=== PATIENT | male | born 1930 | race Caucasian/White ===

== ENCOUNTER 2016-11-13 16:31 | Inpatient (IN) | payer MEDICARE, SELFPAY ==
[2016-11-13] MEDS ORDERED: SODIUM CHLORIDE 0.9% 10 ML FLUSH FLUSH PRN (16:40)
[2016-11-13] MEDS ORDERED: Albuterol/Ipratropium Neb 3 ML NEB NEB ONE (16:41)
[2016-11-13] MEDS ORDERED: METHYLPREDNISOLONE 125 MG/2 ML VIAL IV ONE (16:41)
[2016-11-13 16:55] LABS: AUTOMATED BASOPHIL 1.6 % (0-2); AUTOMATED EOSINOPHIL 2.4 % (0-5); AUTOMATED LYMPH 16.8 % (17-44); AUTOMATED NEUTROPHIL 73.2 % (45-76); MPV 6.8 fL (7.4-10.4)
[2016-11-13 16:56] LABS: ABG Draw Site Right Radial; ABG Draw Tech FS; ALLEN'S TEST PASS; BEb 17.2 (+/- 2); TCO2 44.8 MMOL/L (23-27)
--- NOTE | 2016-11-13 16:56 | EDPRACDOC ---
- General Information Mode Of Arrival: Car - History of Present Illness Onset: TODAY HPI: PT PRESENTS TODAY WITH INCREASINGLY SHOB SINCE LAST NIGHT. PT DENIES FEVER, COUGH/CONGESTION. SHOB WORSE WITH EXERTION. PT CURRENTLY TACHYPNEIC WITH PURSED LIPS AND SPO2 @ 78% ON PTS USUAL 3 LITERS. PT DENIES ANY KIND OF PAIN. Shortness of Breath: Severe Relevant History: Reports: COPD, Heart Failure (CHF) Ear Symptoms: Reports: None SOB Worsens with: Reports: Exertion SOB Improves with: Reports: Rest <Cee Banks - Last Filed: 11/13/16 17:48> <Lloyd Peraza - Last Filed: 11/13/16 19:45> - General Information Chief Complaint: Dyspnea/Resp distress Stated Complaint: shortness of breath Time Seen by Provider: 11/13/16 16:36 Home Medications: Home Medications Doxazosin Mesylate [Cardura] 4 mg PO HS 11/28/12 Atorvastatin Calcium [Lipitor] 20 mg PO QAM 09/17/14 Metoprolol Succinate [Toprol Xl] 25 mg PO HS 09/17/14 Isosorbide Mononitrate [Isosorbide Mononitrate ER] 60 mg PO HS 06/25/15 Aspirin (Enteric Coated) [Halfprin] 81 mg PO QAM 07/30/16 Pantoprazole Sodium [Protonix] 40 mg PO QAM 07/30/16 Ascorbic Acid [Vitamin C] 250 mg PO QAM 09/13/16 Furosemide 40 mg PO QAM 09/13/16 Allergies/Adverse Reactions: Allergies Allergy/AdvReac Type Severity Reaction Status Date / Time Tony inhibitor AdvReac Severe See Uncoded 11/13/16 16:42 Comments ED Past Medical History - History Reviewed Yes Nurses notes reviewed and agree except as marked - Patient Medical History Neurological History: Denies: Cerebrovascular Accident, Seizures Cardiac History: Reports: Coronary Artery Disease, Atrial Fibrillation, Hypertension, Congestive Heart Failure, Heart Attack, Cardiac Catheterization, Hypercholesterolemia, Pacemaker, Valvular Heart Disease Respiratory History: Reports: COPD, Pneumonia, Emphysema. Denies: Asthma, Chronic Bronchitis GI/ History: Reports: Renal Disease, Renal Failure, Urinary Tract Infection, Gastroesophageal Reflux Musculoskeletal History: Reports: Arthritis (Shoulders.), Osteoarthritis. Denies: Rheumatoid Arthritis Psychological History: Reports: Depression. Denies: Anxiety, Bipolar Disorder, Substance Use Disorder Systemic History: Reports: Anemia. Denies: Cancer, Diabetes, Hyperthyroidism, Hypothyroidism Surgical History: Reports: Angioplasty, Cardiac Catheterization, Hernia Surgery. Denies: Other (PTCA and stenting, Pacemaker implantation, hernia surgery, AAA stenting) - Family Medical History Reports: Cardiac Disorders (SON). Denies: Hypertension, Diabetes, Cancer, Stroke - Social Medical History Smoking Status: Former smoker Social History: Denies: Substance Use Disorder <Cee Banks - Last Filed: 11/13/16 17:48> EDM Review of Systems - Review of Systems ROS Negative Except as Marked: Yes All systems reviewed and were negative except as marked Constitutional: No Symptoms Reported Ears: No Symptoms Reported Throat: No Symptoms Reported Nose: No Symptoms Reported Respiratory: Shortness of Breath Cardiovascular: No Symptoms Reported Gastrointestinal: No Symptoms Reported Neurological: No Symptoms Reported Musculoskeletal: No Symptoms Reported Integumentary: No Symptoms Reported <Cee Banks - Last Filed: 11/13/16 17:48> - Physical Exam Constitutional: Alert, Distress Oriented to: Time, Person, Place Last recorded Vital Signs: Last Vital Signs Temp Pulse 85 11/13/16 16:41 Resp 26 H 11/13/16 16:41 BP 147/63 11/13/16 16:41 Pulse Ox 70 L 11/13/16 16:41 Oxygen Pulse Oxygen Saturation 70 O2 Device Nasal Cannula Oxygen Flow Rate 3 Fraction of Inspired Oxygen ( FIO2) - HEENT Head: Normal Eye Exam: Normal Neck: Normal, Denies Pain, Midline - Respiratory/Cardiovascular Respiratory: Accessory Muscle Use, Rhonchi (MILD, BILATERAL LOWER LOBES), Tachypnea Cardiovascular: Normal - GI Auscultation: Normal Palpation: Normal Tenderness: Non tender - Musculoskeletal Back: Normal Extremities: Pedal Edema (1+ PITTING; CHRONIC; NO WORSE THAN USUAL PER PT) - Integumentary Skin: Warm, Clam[place] Lymphatics: Normal - Neurologic Cerebellar: Unable to Test Mood Description: Appropriate Thought: Coherent Perception: Normal <Cee Bnaks - Last Filed: 11/13/16 17:48> - Physical Exam Last recorded Vital Signs: Last Vital Signs Temp Pulse 75 11/13/16 18:01 Resp 20 11/13/16 18:01 BP 121/58 L 11/13/16 18:01 Pulse Ox 88 L 11/13/16 18:01 Oxygen Pulse Oxygen Saturation 88 O2 Device Nasal Cannula Oxygen Flow Rate 2 Fraction of Inspired Oxygen ( 29 FIO2) <Lloyd Peraza - Last Filed: 11/13/16 19:45> ED SOB MDM - Results Result Diagrams: 11/13/16 16:45 11/13/16 16:45 - EKG EKG #1 EKG Time: 16:52 -: Yes EKG interpreted by me Rate: bpm: 75 [place]: LAD Rhythm: NSR Block: LBBB Hypertrophy: None ST: Normal - Additional Information Additional Information: CARE ENDORSED TO DR. PERAZA AT 1800 <Cee Banks - Last Filed: 11/13/16 17:48> - Re-evaluation Re-evaluation 1 Re-evaluation Time: 17:30 (Pt with chronically worsening breathing, now hypoxic into low 80's despite NC O2. Pt unable to stand and walk even a few feet due to CHF. Pt is normotensive, + leg edema, orthopnea, EDMONDS, exp wheeze and rales at bases, diminshed breath sounds diffuse on auscultation. PCXR reviewed, radiology read reviewed. Will give lasix. No new ischemia on ECG. Will need admission. ABG results noted. ) - Results Result Diagrams: 11/13/16 16:45 11/13/16 16:45 Results: WBC 6.7 xk/uL (3.8-10.8) 11/13/16 16:45 RBC 3.92 xM/uL (4.70-6.10) L 11/13/16 16:45 Hgb 9.8 g/dL (14.0-18.0) L 11/13/16 16:45 Hct 30.9 % (42-52) L 11/13/16 16:45 MCV 79 fL (80-94) L 11/13/16 16:45 MCH 24.9 pg (27-32) L 11/13/16 16:45 MCHC 31.5 g/dl (33-36) L 11/13/16 16:45 RDW 21.4 % (11.5-14.5) H 11/13/16 16:45 Plt Count 212 xk/uL (130-400) 11/13/16 16:45 MPV 6.8 fL (7.4-10.4) L 11/13/16 16:45 Neut % (Auto) 73.2 % (45-76) 11/13/16 16:45 Lymph % (Auto) 16.8 % (17-44) L 11/13/16 16:45 Glenn % (Auto) 6.0 % (3-10) 11/13/16 16:45 Eos % (Auto) 2.4 % (0-5) 11/13/16 16:45 Baso % (Auto) 1.6 % (0-2) 11/13/16 16:45 Absolute Neuts (auto) 4.89 xk/uL (1.7-8.2) 11/13/16 16:45 Absolute Lymphs (auto) 1.07 xk/uL (0.65-4.75) 11/13/16 16:45 PT 11.2 SEC (9.2-11.2) 11/13/16 16:45 INR 1.1 11/13/16 16:45 APTT 27.5 SEC (22-35) 11/13/16 16:45 Puncture Site Right radial 11/13/16 16:50 pH 7.510 pH UNITS (7.35-7.45) H 11/13/16 16:50 pCO2 54.0 mmHg (35-45) H 11/13/16 16:50 pO2 57.0 mmHg (80-100) L 11/13/16 16:50 HCO3 43.1 MMOL/L (22-26) H 11/13/16 16:50 Total CO2 44.8 MMOL/L (23-27) H 11/13/16 16:50 Base Excess 17.2 (+/- 2) H 11/13/16 16:50 FiO2 % 3 l/m nc 11/13/16 16:50 Specimen Drawn By Fs 11/13/16 16:50 Sodium 140 mEq/L (137-146) 11/13/16 16:45 Potassium 2.9 mEq/L (3.5-5.1) L 11/13/16 16:45 Chloride 94 mEq/L (98-107) L 11/13/16 16:45 Carbon Dioxide > 40 mMOL/L (22-33) H 11/13/16 16:45 Anion Gap 9 mEq/L (8-16) 11/13/16 16:45 BUN 16 MG/DL (9-20) 11/13/16 16:45 Creatinine 1.10 MG/DL (0.66-1.25) 11/13/16 16:45 Estimated GFR (MDRD) > 60 mL/min (>=60) 11/13/16 16:45 Glucose 110 MG/DL (70-99) H 11/13/16 16:45 Calculated Osmolality 271 MOs/Kg (270-290) 11/13/16 16:45 Lactic Acid 2.7 mEq/L (0.7-2.1) H 11/13/16 16:45 Calcium 7.4 MG/DL (8.4-10.2) L 11/13/16 16:45 Corrected Calcium 8.7 MG/DL (8.4-10.2) 11/13/16 16:45 Total Bilirubin 0.8 MG/DL (0.2-1.3) 11/13/16 16:45 AST 25 IU/L (17-59) 11/13/16 16:45 ALT 25 IU/L (21-72) 11/13/16 16:45 Alkaline Phosphatase 92 IU/L (50-160) 11/13/16 16:45 Troponin I 0.03 ng/mL (<.04) 11/13/16 16:45 Kej-K-Wwnzswstxbo Pept 4280 pg/mL (0-1800) H 11/13/16 16:45 Total Protein 6.3 G/DL (6.3-8.2) 11/13/16 16:45 Albumin 2.7 G/DL (3.5-5.0) L 11/13/16 16:45 Lab Results 11/13/16 11/13/16 11/13/16 16:50 16:45 16:45 WBC RBC Hgb Hct MCV MCH MCHC RDW Plt Count MPV Neut % (Auto) Lymph % (Auto) Glenn % (Auto) Eos % (Auto) Baso % (Auto) Absolute Neuts (auto) Absolute Lymphs (auto) PT INR APTT Puncture Site Right radial pH 7.510 H pCO2 54.0 H pO2 57.0 L HCO3 43.1 H Total CO2 44.8 H Base Excess 17.2 H FiO2 % 3 l/m nc Specimen Drawn By Fs Sodium Potassium Chloride Carbon Dioxide Anion Gap BUN Creatinine Estimated GFR (MDRD) Glucose Calculated Osmolality Lactic Acid 2.7 H Calcium Corrected Calcium Total Bilirubin AST ALT Alkaline Phosphatase Troponin I Tqq-B-Jfzbvipyvdb Pept 4280 H Total Protein Albumin 11/13/16 11/13/16 11/13/16 16:45 16:45 16:45 WBC 6.7 RBC 3.92 L Hgb 9.8 L Hct 30.9 L MCV 79 L MCH 24.9 L MCHC 31.5 L RDW 21.4 H Plt Count 212 MPV 6.8 L Neut % (Auto) 73.2 Lymph % (Auto) 16.8 L Glenn % (Auto) 6.0 Eos % (Auto) 2.4 Baso % (Auto) 1.6 Absolute Neuts (auto) 4.89 Absolute Lymphs (auto) 1.07 PT 11.2 INR 1.1 APTT 27.5 Puncture Site pH pCO2 pO2 HCO3 Total CO2 Base Excess FiO2 % Specimen Drawn By Sodium 140 Potassium 2.9 L Chloride 94 L Carbon Dioxide > 40 H Anion Gap 9 BUN 16 Creatinine 1.10 Estimated GFR (MDRD) > 60 Glucose 110 H Calculated Osmolality 271 Lactic Acid Calcium 7.4 L Corrected Calcium 8.7 Total Bilirubin 0.8 AST 25 ALT 25 Alkaline Phosphatase 92 Troponin I 0.03 Ehd-H-Dlilmrmkhtk Pept Total Protein 6.3 Albumin 2.7 L <Lloyd Peraza - Last Filed: 11/13/16 19:45> - Departure Disposition: Admit IP To This Hospital Decision to Admit Time: 17:37 Decision to admit date: 11/13/16 Decision to admit: from ED <Cee Banks - Last Filed: 11/13/16 17:48> - Departure Yes I personally saw and evaluated the patient. - Physician Consulted Hospitalist Time Called: 19:40 Provider Called: Kevyn Hernandez Time Mortgage Consultant Returned Call: 19:41 <Lloyd Peraza - Last Filed: 11/13/16 19:45> - Departure Condition: Fair Final Diagnosis: Respiratory alkalosis, Hypoxia CHF (congestive heart failure) Qualifiers: Congestive heart failure type: diastolic Congestive heart failure chronicity: acute on chronic Qualified Code(s): I50.33 - Acute on chronic diastolic ( congestive) heart failure Instructions: *Heart Failure (Activity, Diet, Worsening Symptoms, Weight Monitoring)(ED) Referrals: None,No Provider [Primary Care Provider] - One Week
[2016-11-13 17:08] LABS: BLOOD UREA NITROGEN 16 MG/DL (9-20); CALC CORRECTED 8.7 MG/DL (8.4-10.2); CALCIUM 7.4 MG/DL (8.4-10.2); CALCULATED OSMOLALITY 271 MOs/Kg (270-290); CHLORIDE 94 mEq/L (98-107); GLUCOSE 110 MG/DL (70-99); SODIUM LEVEL 140 mEq/L (137-146); TOTAL PROTEIN 6.3 G/DL (6.3-8.2)
[2016-11-13 17:19] LABS: PARTIAL THROMB. TIME 27.5 SEC (22-35); PT-INR 1.1
--- NOTE | 2016-11-13 17:33 | DIRPT ---
CLINICAL DATA: Chest pain with increase shortness of breath over the past day EXAM: PORTABLE CHEST 1 VIEW COMPARISON: 09/14/2016 FINDINGS: Moderate cardiac enlargement. Vascular congestion. Diffuse hazy interstitial opacification bilaterally similar to prior study allowing for differences in technique. Cardiac pacer unchanged. Retrocardiac portion of the left lower lobe not well evaluated on single AP view with evidence of abnormal opacity in this area. IMPRESSION: Findings suggest congestive heart failure with cardiac enlargement vascular congestion and significant diffuse interstitial prominence stable to slightly worse when compared to prior study. There also remains more focal severe left lower lobe opacity. Electronically Signed By: Gurwinder Child M.D. On: 11/13/2016 17:31
[2016-11-13] MEDS ORDERED: FUROSEMIDE 40 MG/4 ML VIAL IV ONE (17:35)
[2016-11-13] MEDS ORDERED: POTASSIUM CHLORIDE 20 MEQ/15 ML ORAL SOLN PO ONE (17:38)
[2016-11-13 18:37] LABS: RBC/URINE 0-2 (0-2); WBC/URINE 0-2 (0-2)
[2016-11-13 18:38] LABS: LEUKOCYTES/URINE NEG (NEGATIVE); NITRITE/URINE NEG (NEGATIVE); URINE OCCULT BLOOD NEG (NEG/TRACE)
[2016-11-13] MEDS ORDERED: POTASSIUM CHLORIDE 20 MEQ TAB PO ONE (19:39)
[2016-11-13] MEDS ORDERED: ACETAMINOPHEN 325 MG/TAB TABLET PO PRN (19:43)
[2016-11-13] MEDS ORDERED: ONDANSETRON HCL 4 MG/2 ML VIAL IV PRN (19:43)
[2016-11-13] MEDS ORDERED: Pharmacy Order Set Alert SCH (20:00)
--- NOTE | 2016-11-13 20:29 | HISTPHYS ---
- Chief Complaint shortness of breath - History of Present Illness This is a pleasant 86-year-old male who lives at home with his , and is brought in by his son lis due to significant shortness of breath. Most of the history is provided by the son, tells me that his diet has been in the usual state of health, but over the last 2-3 days he has been very weak, with very little energy. He is breathing comfortably at rest, but with any sort of exertion he gets more short of breath. The patient himself denies any chest pain, shortness of breath at rest, any orthopnea, or cough. They both do note that he has some swelling in his hands and his bilateral lower extremities. He has been taking all of his medications including his Lasix as prescribed. Denies any recent illness, fevers chills or chest pain. No nausea or vomiting, changes in bowel or bladder habits. - Medical History Cardiac History: Reports: Coronary Artery Disease, Atrial Fibrillation, Hypertension, Congestive Heart Failure, Heart Attack, Cardiac Catheterization, Hypercholesterolemia, Pacemaker, Valvular Heart Disease Respiratory History: Reports: COPD, Pneumonia, Emphysema. Denies: Asthma, Chronic Bronchitis GI/ History: Reports: Renal Disease, Renal Failure, Urinary Tract Infection, Gastroesophageal Reflux Musculoskeletal History: Reports: Arthritis (Shoulders.), Osteoarthritis. Denies: Rheumatoid Arthritis Systemic History: Reports: Anemia. Denies: Cancer, Diabetes, Hyperthyroidism, Hypothyroidism Neurological History: Denies: Cerebrovascular Accident, Seizures Psychological History: Reports: Depression. Denies: Anxiety, Bipolar Disorder, Substance Use Disorder - Surgical History Reports: Angioplasty, Cardiac Catheterization, Hernia Surgery. Denies: Other ( PTCA and stenting, Pacemaker implantation, hernia surgery, AAA stenting) - Medictions/Allergies Allergies Tony inhibitor Adverse Reaction (Severe, Uncoded 11/13/16 16:42) See Comments Renal failure Home Medications Doxazosin Mesylate [Cardura] 4 mg PO HS 11/28/12 Atorvastatin Calcium [Lipitor] 20 mg PO QAM 09/17/14 Metoprolol Succinate [Toprol Xl] 25 mg PO HS 09/17/14 Isosorbide Mononitrate [Isosorbide Mononitrate ER] 60 mg PO HS 06/25/15 Aspirin (Enteric Coated) [Halfprin] 81 mg PO QAM 07/30/16 Pantoprazole Sodium [Protonix] 40 mg PO QAM 07/30/16 Ascorbic Acid [Vitamin C] 250 mg PO QAM 09/13/16 Furosemide 40 mg PO QAM 09/13/16 - Family History Reports: Cardiac Disorders (SON). Denies: Hypertension, Diabetes, Cancer, Stroke - Social History Smoking Status: Former smoker Social History: Denies: Substance Use Disorder - Review of Systems Yes All systems reviewed and were negative except as marked (And as mentioned in the history of present illness above.) - Physical Exam Vital Signs: Initial Vitals Pulse Rate 85 11/13/16 16:41 Respiratory Rate 26 H 11/13/16 16:41 Blood Pressure 147/63 11/13/16 16:41 Pulse Oxygen Saturation 70 L 11/13/16 16:41 Constitutional: Alert (Awake, Fully oriented, well appearing. No apparent distress) Oriented to: Time, Person, Place Exam: Breathing comfortably on nasal cannula oxygen. - HEENT Head: Normal (normocephalic,atraumatic, trachea midline) Eye: Normal (EOMI, Sclera white) Oropharynx: Normal (moist) Nose: No Symptoms Reported (without discharge or bleeding) Respiratory: Diminished, Other (Crackles at bilateral bases.) Cardiovascular: Normal (RRR, no murmurs, rubs or gallops) - GI Palpation: Normal (soft, non distended and nontender) - Musculoskeletal Extremities: Normal (normal tone, no cyanosis or edema), Edema (Two to 3+ pitting edema in the bilateral lower extremities.) - Integumentary Skin: Normal (no rashes or lesions) - Neurologic Cranial Nerve: Normal (CN II-XII intact) Mood Description: Normal (Fully oriented and appropiate affect) - Focused CV Perfusion Exam Vital Signs: Last Vital Signs Temp Pulse 76 11/13/16 19:57 Resp 20 11/13/16 19:57 BP 118/59 L 11/13/16 19:57 Pulse Ox 93 11/13/16 19:57 - Lab Results Laboratory Tests 09/16/16 09/16/16 11/13/16 06:21 06:21 16:45 WBC 6.8 Hgb 8.9 L Hct 27.2 L Plt Count INR pH pCO2 pO2 Potassium 2.9 L BUN 39 H 16 Creatinine 1.30 H 1.10 11/13/16 11/13/16 11/13/16 16:45 16:45 16:50 WBC 6.7 Hgb 9.8 L Hct 30.9 L Plt Count 212 INR 1.1 pH 7.510 H pCO2 54.0 H pO2 57.0 L Potassium BUN Creatinine - Diagnostic Findings Chest x-ray: Findings suggest congestive heart failure with cardiac enlargement vascular congestion and significant diffuse interstitial prominence stable to slightly worse when compared to prior study. There also remains more focal severe left lower lobe opacity. - Assessment (1) CHF (congestive heart failure) I50.9 - HEART FAILURE, UNSPECIFIED Acute Qualifiers: Congestive heart failure type: diastolic Congestive heart failure chronicity: acute on chronic Qualified Code(s): I50.33 - Acute on chronic diastolic (congestive) heart failure Patient's history of diastolic heart failure. He now appears to be in congestive heart failure with peripheral edema, hypoxia with exertion and pulmonary edema on chest x-ray. Will continue the appropriate heart failure medications that he is already on, will also add IV Lasix twice daily for diuresis along with increase in supplemental potassium. (2) Hypoxia R09.02 - HYPOXEMIA Acute Likely due to his CHF exacerbation. Since he does not have orthopnea, and is borderline tachycardic, will check a D-dimer. If elevated will consider CT angiogram of the chest tonight to rule out pulmonary emboli. (3) Diastolic congestive heart failure I50.30 - UNSPECIFIED DIASTOLIC (CONGESTIVE) HEART FAILURE Acute Qualifiers: Congestive heart failure chronicity: acute on chronic Qualified Code(s): I50.33 - Acute on chronic diastolic (congestive) heart failure Patient w/ past hx of amiodarone induced hyperthyroidism. Hx of diastolic dysfunction. (4) Hypokalemia E87.6 - HYPOKALEMIA Acute Potassium levels are depleted at the time of admission. He got 2 doses of p.o. repletion in the emergency department. Will give him twice daily replacement while he is on IV Lasix. (5) PAF (paroxysmal atrial fibrillation) I48.0 - PAROXYSMAL ATRIAL FIBRILLATION Acute (6) CAD (coronary artery disease) I25.10 - ATHSCL HEART DISEASE OF [place] CORONARY ARTERY W/O ANG PCTRS Chronic Qualifiers: Coronary Disease-Associated Artery/Lesion type: [place] artery [place] vs. transplanted heart: [place] heart Associated angina: without angina Qualified Code(s): I25.10 - Atherosclerotic heart disease of [place] coronary artery without angina pectoris Continue current medications and monitor (7) COPD (chronic obstructive pulmonary disease) J44.9 - CHRONIC OBSTRUCTIVE PULMONARY DISEASE, UNSPECIFIED Chronic Qualifiers: COPD type: emphysema Chronic bronchitis type: C Emphysema type: panlobular Qualified Code(s): J43.1 - Panlobular emphysema Continue home oxygen, and supportive care. Currently no evidence of COPD exacerbation at this time. (8) Chronic kidney disease N18.9 - CHRONIC KIDNEY DISEASE, UNSPECIFIED Chronic Qualifiers: Chronic kidney disease stage: unspecified stage Qualified Code(s): N18.9 - Chronic kidney disease, unspecified Current creatinine at baseline for this patient. Plan: Continue to monitor creatinine levels. Avoid nephrotoxins. (9) GERD (gastroesophageal reflux disease) K21.9 - GASTRO-ESOPHAGEAL REFLUX DISEASE WITHOUT ESOPHAGITIS Chronic Qualifiers: Esophagitis presence: without esophagitis Qualified Code(s): K21.9 - Gastro -esophageal reflux disease without esophagitis Continue PPI (10) Hyperlipidemia E78.5 - HYPERLIPIDEMIA, UNSPECIFIED Chronic Qualifiers: Hyperlipidemia type: Mixed hyperlipidemia Continue home statin. - Plan Patient's eldest son who was at the emergency department lis expresses some concern about his father spending the whole day in the chair, not very active and he feels this is why he is developing lower extremity edema and some heart failure. I discussed with him that they may want to explore the services that the [facility] program provides. I have placed a social work consult for this. Case Care Discussed with: Patient, Family Total Time: 48
[2016-11-13] MEDS: FUROSEMIDE 40 MG/4 ML VIAL IV SCH (21:58)
[2016-11-13] MEDS ORDERED: Pharmacy Review for Metformin - IV Contrast Given SCH (22:00)
[2016-11-13] MEDS ORDERED: Vaccine Screening Complete SCH (23:00)
--- NOTE | 2016-11-13 23:15 | DIRPT ---
CLINICAL DATA: Hypoxia. Elevated D-dimer. Weakness. Shortness of breath for 3 days. EXAM: CT ANGIOGRAPHY CHEST WITH CONTRAST TECHNIQUE: Multidetector CT imaging of the chest was performed using the standard protocol during bolus administration of intravenous contrast. Multiplanar CT image reconstructions and MIPs were obtained to evaluate the vascular anatomy. CONTRAST: 90 mL Isovue 370 COMPARISON: 07/01/2016 FINDINGS: Technically limited study due to motion artifact. There is moderately good opacification of the central and segmental pulmonary arteries. No focal filling defects. No evidence of significant pulmonary embolus. Diffuse cardiac enlargement. Cardiac pacemaker. Normal caliber thoracic aorta with calcifications. Coronary artery calcifications. Esophagus is decompressed. No significant lymphadenopathy in the chest. Bilateral pleural effusions with interstitial prominence and patchy airspace disease bilaterally suggesting edema. No pneumothorax. Airways are patent. Calcified pleural plaques. Included portions of the upper abdominal organs demonstrate scattered calcified granulomas in the liver. Degenerative changes in the spine. No destructive bone lesions. Review of the MIP images confirms the above findings. IMPRESSION: No evidence of significant pulmonary embolus. Cardiac enlargement with bilateral pleural effusions and with airspace and interstitial disease in the lungs. This is likely due to congestive failure with pulmonary edema. Calcified pleural plaques. Electronically Signed By: Ellis Turner M.D. On: 11/13/2016 23:12
[2016-11-13] MEDS: METOPROLOL (TOPROL-XL) 25 MG TAB PO SCH (23:32)
[2016-11-13] MEDS: ISOSORBIDE MONONITRATE 60 MG TAB PO SCH (23:32)
[2016-11-13] MEDS: Doxazosin Mesylate 4 MG TAB PO SCH (23:32)
[2016-11-14 05:13] LABS: BLOOD UREA NITROGEN 16 MG/DL (9-20); CALCIUM 7.4 MG/DL (8.4-10.2); CALCULATED OSMOLALITY 276 MOs/Kg (270-290); CHLORIDE 94 mEq/L (98-107); GLUCOSE 256 MG/DL (70-99); SODIUM LEVEL 138 mEq/L (137-146)
[2016-11-14] MEDS: PANTOPRAZOLE 40 MG TAB PO SCH (05:45)
[2016-11-14] MEDS: ATORVASTATIN 20 MG TAB PO SCH (07:50)
[2016-11-14] MEDS: POTASSIUM CHLORIDE 20 MEQ TAB PO SCH ×2 (07:50→17:21)
[2016-11-14] MEDS: FUROSEMIDE 40 MG/4 ML VIAL IV SCH ×2 (07:50→17:21)
--- NOTE | 2016-11-14 15:07 | GENMEDPROG ---
Chief Complaint: Shortness breath is improved and walked twice this morning. States he uses O2 at home set at 3 liters/minute. Notes Reviewed: Yes Events from last night noted and discussed with Clinical Staff Current Medication List: Reviewed Currently: Reports: Cough DVT Prophylaxis: Yes - Physical Examination Vital Signs and I&O: Last Vital Signs Temp 97.6 F 11/14/16 14:00 Pulse 73 11/14/16 09:29 Resp 20 11/14/16 06:00 BP 119/56 L 11/14/16 06:00 Pulse Ox 91 11/14/16 06:00 Oxygen Pulse Oxygen Saturation 91 O2 Device Nasal Cannula Oxygen Flow Rate 3 Fraction of Inspired Oxygen ( FIO2) Intake & Output 11/11/16 11/12/16 11/13/16 11/14/16 23:59 23:59 23:59 23:59 Intake Total 720 Output Total 200 650 Balance -200 70 Patient's weight 98.293 kg 98.293 kg General: Alert, Oriented x3, Mild distress, Well nourished HEENT: Normal (Normocephalic, atraumatic;EOMI.Sclera white, Nares patent, without discharge or bleeding. No oropharyngeal lesions or erythema. Mucous membranes are dry.) Neck: Non-tender, Normal Trachea alignment, Normal inspection (No cervical lymphadenopathy. No supraclavicular lymphadenopathy.), No Masses palpable, Limited range of motion, Supple Lymphatics: Normal (No lymph node swelling or pain.) Respiratory: Diminished, Other (Crackles at bilateral bases.) Cardiovascular: Normal S1, No Gallops,Rubs/Murmurs, Normal S2, Irregular GI: Normal bowel sounds (normal active sounds), Soft (non-distended), Non tender , No hepatospenomegaly, No masses Extremities/Musculoskeletal: Normal pulses (DP pulses 2+ bilaterally) Skin: Warm,Dry and Intact, No rashes, No significant lesion Neurological: Strength at 5/5 X4 ext (Motor 5/5 throughout.), Normal tone, Cranial nerves 3-12 NL ( 2-12 grossly intact.) Psych/Mental Status: Appropriate, Normal Affect Lab/DI/Studies Reviewed: 11/14/16 04:45 11/14/16 04:45 Laboratory Results - last 24 hr 11/13/16 11/13/16 11/13/16 16:45 16:45 16:45 WBC 6.7 RBC 3.92 L Hgb 9.8 L Hct 30.9 L MCV 79 L MCH 24.9 L MCHC 31.5 L RDW 21.4 H Plt Count 212 MPV 6.8 L Neut % (Auto) 73.2 Lymph % (Auto) 16.8 L [place] % (Auto) 6.0 Eos % (Auto) 2.4 Baso % (Auto) 1.6 Absolute Neuts (auto) 4.89 Absolute Lymphs (auto) 1.07 PT 11.2 INR 1.1 APTT 27.5 D-Dimer Quant (PE/DVT) Puncture Site pH pCO2 pO2 HCO3 Total CO2 Base Excess FiO2 % Specimen Drawn By Sodium 140 Potassium 2.9 L Chloride 94 L Carbon Dioxide > 40 H Anion Gap 9 BUN 16 Creatinine 1.10 Estimated GFR (MDRD) > 60 Glucose 110 H Calculated Osmolality 271 Lactic Acid Calcium 7.4 L Corrected Calcium 8.7 Magnesium Total Bilirubin 0.8 AST 25 ALT 25 Alkaline Phosphatase 92 Troponin I 0.03 [id number]-Ynankpwpycn Pept Total Protein 6.3 Albumin 2.7 L Triglycerides Cholesterol LDL Cholesterol, Calc VLDL Cholesterol, Calc HDL Cholesterol Cholesterol/HDL Ratio Urine Color Urine Clarity Urine pH Ur Specific [place] Urine Protein Urine Glucose (UA) Urine Ketones Urine Occult Blood Urine Nitrite Urine Bilirubin Urine Urobilinogen Ur Leukocyte Esterase Urine RBC Urine WBC Ur Epithelial Cells Urine Bacteria Hyaline Casts 11/13/16 11/13/16 11/13/16 16:45 16:45 16:50 WBC RBC Hgb Hct MCV MCH MCHC RDW Plt Count MPV Neut % (Auto) Lymph % (Auto) [place] % (Auto) Eos % (Auto) Baso % (Auto) Absolute Neuts (auto) Absolute Lymphs (auto) PT INR APTT D-Dimer Quant (PE/DVT) Puncture Site Right radial pH 7.510 H pCO2 54.0 H pO2 57.0 L HCO3 43.1 H Total CO2 44.8 H Base Excess 17.2 H FiO2 % 3 l/m nc Specimen Drawn By Fs Sodium Potassium Chloride Carbon Dioxide Anion Gap BUN Creatinine Estimated GFR (MDRD) Glucose Calculated Osmolality Lactic Acid 2.7 H Calcium Corrected Calcium Magnesium Total Bilirubin AST ALT Alkaline Phosphatase Troponin I Plz-O-Upuifbdlqib Pept 4280 H Total Protein Albumin Triglycerides Cholesterol LDL Cholesterol, Calc VLDL Cholesterol, Calc HDL Cholesterol Cholesterol/HDL Ratio Urine Color Urine Clarity Urine pH Ur Specific [place] Urine Protein Urine Glucose (UA) Urine Ketones Urine Occult Blood Urine Nitrite Urine Bilirubin Urine Urobilinogen Ur Leukocyte Esterase Urine RBC Urine WBC Ur Epithelial Cells Urine Bacteria Hyaline Casts 11/13/16 11/13/16 11/13/16 18:24 19:36 20:31 WBC RBC Hgb Hct MCV MCH MCHC RDW Plt Count MPV Neut % (Auto) Lymph % (Auto) [place] % (Auto) Eos % (Auto) Baso % (Auto) Absolute Neuts (auto) Absolute Lymphs (auto) PT INR APTT D-Dimer Quant (PE/DVT) Puncture Site pH pCO2 pO2 HCO3 Total CO2 Base Excess FiO2 % Specimen Drawn By Sodium Potassium Chloride Carbon Dioxide Anion Gap BUN Creatinine Estimated GFR (MDRD) Glucose Calculated Osmolality Lactic Acid 1.1 Calcium Corrected Calcium Magnesium Total Bilirubin AST ALT Alkaline Phosphatase Troponin I 0.03 Rlj-P-Iqxvcgancwk Pept Total Protein Albumin Triglycerides Cholesterol LDL Cholesterol, Calc VLDL Cholesterol, Calc HDL Cholesterol Cholesterol/HDL Ratio Urine Color Yellow Urine Clarity Clear Urine pH 7.0 Ur Specific [place] 1.005 Urine Protein Neg Urine Glucose (UA) Neg Urine Ketones Neg Urine Occult Blood Neg Urine Nitrite Neg Urine Bilirubin Neg Urine Urobilinogen 2 H Ur Leukocyte Esterase Neg Urine RBC 0-2 Urine WBC 0-2 Ur Epithelial Cells Occ Urine Bacteria Few Hyaline Casts 0-2 11/13/16 11/13/16 11/14/16 20:31 22:40 04:45 WBC RBC Hgb Hct MCV MCH MCHC RDW Plt Count MPV Neut % (Auto) Lymph % (Auto) [place] % (Auto) Eos % (Auto) Baso % (Auto) Absolute Neuts (auto) Absolute Lymphs (auto) PT INR APTT D-Dimer Quant (PE/DVT) 2483 H Puncture Site pH pCO2 pO2 HCO3 Total CO2 Base Excess FiO2 % Specimen Drawn By Sodium 138 Potassium 3.6 Chloride 94 L Carbon Dioxide 39 H Anion Gap 9 BUN 16 Creatinine 1.20 Estimated GFR (MDRD) 57 L Glucose 256 H Calculated Osmolality 276 Lactic Acid Calcium 7.4 L Corrected Calcium Magnesium 1.60 Total Bilirubin AST ALT Alkaline Phosphatase Troponin I 0.02 Xrb-I-Bcuefrjcayz Pept 4800 H Total Protein Albumin Triglycerides 45 Cholesterol 111 LDL Cholesterol, Calc 58.0 VLDL Cholesterol, Calc 9.0 HDL Cholesterol 44.0 Cholesterol/HDL Ratio 2.5 Urine Color Urine Clarity Urine pH Ur Specific [place] Urine Protein Urine Glucose (UA) Urine Ketones Urine Occult Blood Urine Nitrite Urine Bilirubin Urine Urobilinogen Ur Leukocyte Esterase Urine RBC Urine WBC Ur Epithelial Cells Urine Bacteria Hyaline Casts 11/14/16 04:45 WBC 3.0 L RBC 3.53 L Hgb 8.8 L D Hct 28.0 L MCV 79 L MCH 24.9 L MCHC 31.4 L RDW 20.8 H Plt Count 192 MPV 7.0 L Neut % (Auto) Lymph % (Auto) [place] % (Auto) Eos % (Auto) Baso % (Auto) Absolute Neuts (auto) Absolute Lymphs (auto) PT INR APTT D-Dimer Quant (PE/DVT) Puncture Site pH pCO2 pO2 HCO3 Total CO2 Base Excess FiO2 % Specimen Drawn By Sodium Potassium Chloride Carbon Dioxide Anion Gap BUN Creatinine Estimated GFR (MDRD) Glucose Calculated Osmolality Lactic Acid Calcium Corrected Calcium Magnesium Total Bilirubin AST ALT Alkaline Phosphatase Troponin I Czt-K-Uzbfmsdcdnq Pept Total Protein Albumin Triglycerides Cholesterol LDL Cholesterol, Calc VLDL Cholesterol, Calc HDL Cholesterol Cholesterol/HDL Ratio Urine Color Urine Clarity Urine pH Ur Specific [place] Urine Protein Urine Glucose (UA) Urine Ketones Urine Occult Blood Urine Nitrite Urine Bilirubin Urine Urobilinogen Ur Leukocyte Esterase Urine RBC Urine WBC Ur Epithelial Cells Urine Bacteria Hyaline Casts - Assessment (1) CHF (congestive heart failure) Acute I50.9 - HEART FAILURE, UNSPECIFIED Qualifiers: Congestive heart failure type: diastolic Congestive heart failure chronicity: acute on chronic Qualified Code(s): I50.33 - Acute on chronic diastolic (congestive) heart failure Comment/Plan: Patient's history of diastolic heart failure. He is in congestive heart failure with peripheral edema, hypoxia with exertion and pulmonary edema on chest x-ray. Will continue the heart failure medications that he is already on, will also add IV Lasix every 8 hours for diuresis along with increase in supplemental potassium and Zaroxolyn for the next several days. (2) Acute and chronic respiratory failure with hypoxia Acute J96.21 - ACUTE AND CHRONIC RESPIRATORY FAILURE WITH HYPOXIA Comment/ Plan: Patient admitted to monitored medical bed. Continue supplemental O2. Monitor pulmonary status oximetry and chest x-ray. (3) Anemia Acute D64.9 - ANEMIA, UNSPECIFIED Qualifiers: Anemia type: A Iron deficiency anemia type: I Vitamin B12 deficiency anemia type: V Folate deficiency anemia type: F Bone marrow failure anemia type: B Hemolytic anemia type: H Other causes of anemia: chronic disease, kidney Comment/Plan: Patient with chronic anemia likely stage III renal disease causing this anemia. If anemia deteriorates may consider erythrpoetin injections. 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 transplanted heart: [place] heart Associated angina: without angina Qualified Code(s): I25.10 - Atherosclerotic heart disease of [place] coronary artery without angina pectoris Comment/Plan: Continue current medications and monitor (6) COPD (chronic obstructive pulmonary disease) Chronic J44.9 - CHRONIC OBSTRUCTIVE PULMONARY DISEASE, UNSPECIFIED Qualifiers: COPD type: emphysema Chronic bronchitis type: C Emphysema type: panlobular Qualified Code(s): J43.1 - Panlobular emphysema Comment/Plan: Continue home oxygen, and supportive care. Currently no evidence of COPD exacerbation at this time. (7) Dyslipidemia Chronic E78.5 - HYPERLIPIDEMIA, UNSPECIFIED Comment/Plan: Continue statin (8) GERD (gastroesophageal reflux disease) Chronic K21.9 - GASTRO-ESOPHAGEAL REFLUX DISEASE WITHOUT ESOPHAGITIS Qualifiers: Esophagitis presence: without esophagitis Qualified Code(s): K21.9 - Gastro -esophageal reflux disease without esophagitis Comment/Plan: Continue PPI Case Care Discussed with: Patient, Nursing Staff, Resource Management Education/Counseling Given To: Patient Education/Counseling Given Regarding: Diagnosis Total Time: 39 min Critical Care: No Code: 77244 (12+)
[2016-11-14] MEDS: METOLAZONE 5 MG TAB PO SCH (17:21)
[2016-11-14] MEDS: ENOXAPARIN 40 MG/0.4 ML PFS SQ SCH (17:21)
[2016-11-14] MEDS: ISOSORBIDE MONONITRATE 60 MG TAB PO SCH (19:59)
[2016-11-14] MEDS: Doxazosin Mesylate 4 MG TAB PO SCH (19:59)
[2016-11-14] MEDS: METOPROLOL (TOPROL-XL) 25 MG TAB PO SCH (19:59)
[2016-11-15] MEDS: FUROSEMIDE 40 MG/4 ML VIAL IV SCH ×4 (00:18→23:59)
[2016-11-15 05:00] LABS: BLOOD UREA NITROGEN 20 MG/DL (9-20); CALCIUM 7.5 MG/DL (8.4-10.2); CALCULATED OSMOLALITY 273 MOs/Kg (270-290); CHLORIDE 92 mEq/L (98-107); GLUCOSE 133 MG/DL (70-99); SODIUM LEVEL 139 mEq/L (137-146)
[2016-11-15] MEDS: PANTOPRAZOLE 40 MG TAB PO SCH (05:55)
[2016-11-15] MEDS: POTASSIUM CHLORIDE 20 MEQ TAB PO SCH ×6 (08:31→17:14)
[2016-11-15] MEDS: ATORVASTATIN 20 MG TAB PO SCH (08:32)
[2016-11-15] MEDS: METOLAZONE 5 MG TAB PO SCH (08:32)
--- NOTE | 2016-11-15 10:00 | GENMEDPROG ---
Chief Complaint: sob better Notes Reviewed: Yes Events from last night noted and discussed with Clinical Staff Current Medication List: Reviewed Currently: Reports: Cough DVT Prophylaxis: Yes - Physical Examination Vital Signs and I&O: Last Vital Signs Temp 97.9 F 11/15/16 07:25 Pulse 70 11/15/16 07:26 Resp 20 11/15/16 07:25 BP 118/56 L 11/15/16 07:25 Pulse Ox 91 11/15/16 07:25 Oxygen Pulse Oxygen Saturation 91 O2 Device Nasal Cannula Oxygen Flow Rate 3 Fraction of Inspired Oxygen ( FIO2) Intake & Output 11/12/16 11/13/16 11/14/16 11/15/16 23:59 23:59 23:59 23:59 Intake Total 1080 440 Output Total 200 1351 9892 Balance -966 -761 -2094 Patient's weight 98.293 kg 98.293 kg 95.935 kg General: Alert, Oriented x3, Mild distress, Well nourished HEENT: Normal (Normocephalic, atraumatic;EOMI.Sclera white, Nares patent, without discharge or bleeding. No oropharyngeal lesions or erythema. Mucous membranes are dry.) Neck: Non-tender, Normal Trachea alignment, Normal inspection (No cervical lymphadenopathy. No supraclavicular lymphadenopathy.), No Masses palpable, Limited range of motion, Supple Lymphatics: Normal (No lymph node swelling or pain.) Respiratory: Diminished, Other (Crackles at bilateral bases.) Cardiovascular: Normal S1, No Gallops,Rubs/Murmurs, Normal S2, Irregular GI: Normal bowel sounds (normal active sounds), Soft (non-distended), Non tender , No hepatospenomegaly, No masses Extremities/Musculoskeletal: Normal pulses (DP pulses 2+ bilaterally) Skin: Warm,Dry and Intact, No rashes, No significant lesion Neurological: Strength at 5/5 X4 ext (Motor 5/5 throughout.), Normal tone, Cranial nerves 3-12 NL ( 2-12 grossly intact.) Psych/Mental Status: Appropriate, Normal Affect Lab/DI/Studies Reviewed: 11/15/16 04:25 11/15/16 04:25 Laboratory Results - last 24 hr 11/14/16 11/15/16 11/15/16 04:45 04:25 04:25 WBC 6.0 RBC 3.70 L Hgb 9.2 L Hct 29.2 L MCV 79 L MCH 24.9 L MCHC 31.5 L RDW 21.0 H Plt Count 205 MPV 7.0 L Sodium 139 Potassium 3.1 L Chloride 92 L Carbon Dioxide 40 H Anion Gap 10 BUN 20 Creatinine 1.30 H Estimated GFR (MDRD) 52 L Glucose 133 H Hemoglobin A1c 6.8 H Calculated Osmolality 273 Calcium 7.5 L Sgo-U-Uexvveyjokj Pept 5350 H - Assessment (1) CHF (congestive heart failure) Acute I50.9 - HEART FAILURE, UNSPECIFIED Qualifiers: Congestive heart failure type: diastolic Congestive heart failure chronicity: acute on chronic Qualified Code(s): I50.33 - Acute on chronic diastolic (congestive) heart failure Comment/Plan: Patient's history of diastolic heart failure. He is in congestive heart failure with peripheral edema, hypoxia with exertion and pulmonary edema on chest x-ray. Will continue the heart failure medications that he is already on, will also add IV Lasix every 8 hours for diuresis then switch to demadex along with increase in supplemental potassium and Zaroxolyn for the next 1 day. Starting aldactone 25 bid. (2) Acute and chronic respiratory failure with hypoxia Acute J96.21 - ACUTE AND CHRONIC RESPIRATORY FAILURE WITH HYPOXIA Comment/ Plan: Patient admitted to monitored medical bed. Continue supplemental O2. Monitor pulmonary status oximetry and chest x-ray. (3) Anemia Acute D64.9 - ANEMIA, UNSPECIFIED Qualifiers: Anemia type: A Iron deficiency anemia type: I Vitamin B12 deficiency anemia type: V Folate deficiency anemia type: F Bone marrow failure anemia type: B Hemolytic anemia type: H Other causes of anemia: chronic disease, kidney Comment/Plan: Patient with chronic anemia likely stage III renal disease causing this anemia. If anemia deteriorates may consider erythrpoetin injections. 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 transplanted heart: [place] heart Associated angina: without angina Qualified Code(s): I25.10 - Atherosclerotic heart disease of [place] coronary artery without angina pectoris Comment/Plan: Continue current medications and monitor (6) COPD (chronic obstructive pulmonary disease) Chronic J44.9 - CHRONIC OBSTRUCTIVE PULMONARY DISEASE, UNSPECIFIED Qualifiers: COPD type: emphysema Chronic bronchitis type: C Emphysema type: panlobular Qualified Code(s): J43.1 - Panlobular emphysema Comment/Plan: Continue home oxygen, and supportive care. Currently no evidence of COPD exacerbation at this time. (7) Dyslipidemia Chronic E78.5 - HYPERLIPIDEMIA, UNSPECIFIED Comment/Plan: Continue statin (8) GERD (gastroesophageal reflux disease) Chronic K21.9 - GASTRO-ESOPHAGEAL REFLUX DISEASE WITHOUT ESOPHAGITIS Qualifiers: Esophagitis presence: without esophagitis Qualified Code(s): K21.9 - Gastro -esophageal reflux disease without esophagitis Comment/Plan: Continue PPI Case Care Discussed with: Patient, Nursing Staff Education/Counseling Given To: Patient Education/Counseling Given Regarding: Diagnosis Total Time: 38 min Critical Care: No Code: 40075 (12+)
[2016-11-15] MEDS: SPIRONOLACTONE 25 MG TAB PO SCH ×2 (11:44→17:13)
--- NOTE | 2016-11-15 14:45 | PCM.CARDCO ---
Consultation Date: 11/15/16 Requesting Physician: Liborio Solis [employer]: Willie Elizabeth Consult Reason: CHF - History of Present Illness Patient is an 86 is old gentleman with diastolic congestive heart failure. He was admitted to the hospital with chief complaint of progressive shortness of breath. He was given appropriate medication improved quite significantly in the matter of fact today he was able to walk on the hallway twice without much difficulties. Before admission he did have paroxysmal nocturnal dyspnea but no significant swelling of lower extremities. Did have some cough but no sputum production. Denies have any syncope or dizziness. His past medical history include pacemaker, paroxysmal atrial fibrillation. I do see him in the office however I can't remember last time when I have seen him and I will review his notes finishing this consultation. Chief Complaint: shortness of breath - Past Medical and Surgical History Cardiac History: Reports: Coronary Artery Disease, Atrial Fibrillation, Hypertension, Congestive Heart Failure, Heart Attack, Cardiac Catheterization, Hypercholesterolemia, Pacemaker, Valvular Heart Disease Respiratory History: Reports: COPD, Pneumonia, Emphysema. Denies: Asthma, Chronic Bronchitis GI/ History: Reports: Renal Disease, Renal Failure, Urinary Tract Infection, Gastroesophageal Reflux Systemic History: Reports: Anemia. Denies: Cancer, Diabetes, Hyperthyroidism, Hypothyroidism Musculoskeletal History: Reports: Arthritis (Shoulders.), Osteoarthritis. Denies: Rheumatoid Arthritis Psychological History: Reports: Depression. Denies: Anxiety, Bipolar Disorder, Alcoholism, Substance Use Disorder Neurological History: Denies: Cerebrovascular Accident, Seizures Past Surgical History: Reports: Angioplasty, Cardiac Catheterization, Hernia Surgery. Denies: Other (PTCA and stenting, Pacemaker implantation, hernia surgery, AAA stenting) Allergies Tony inhibitor Adverse Reaction (Severe, Uncoded 11/13/16 16:42) See Comments Renal failure Home Medications Doxazosin Mesylate [Cardura] 4 mg PO HS 11/28/12 Atorvastatin Calcium [Lipitor] 20 mg PO QAM 09/17/14 Metoprolol Succinate [Toprol Xl] 25 mg PO HS 09/17/14 Isosorbide Mononitrate [Isosorbide Mononitrate ER] 60 mg PO HS 06/25/15 Aspirin (Enteric Coated) [Halfprin] 81 mg PO QAM 07/30/16 Pantoprazole Sodium [Protonix] 40 mg PO QAM 07/30/16 Ascorbic Acid [Vitamin C] 250 mg PO QAM 09/13/16 Furosemide 40 mg PO QAM 09/13/16 Azithromycin 500 mg PO QAM 11/13/16 Cefdinir 300 mg PO QAM 11/13/16 Prednisone [Deltasone, Orasone] 10 mg PO QAM 11/13/16 - Social History Travel Outside of [place] in the Last 3 Months?: No Smoking Status: Former smoker Social History: Denies: Alcohol Use, Substance Use Disorder - Family History Reports: Cardiac Disorders (SON). Denies: Hypertension, Diabetes, Cancer, Stroke - Review of Systems Constitutional: No Symptoms Reported - Physical Exam Constitutional: Alert (Awake, Fully oriented, well appearing. No apparent distress) Oriented to: Time, Person, Place Exam: Last Vital Signs Temp 97.6 F 11/15/16 12:05 Pulse 67 11/15/16 13:41 Resp 20 11/15/16 12:05 BP 119/55 L 11/15/16 12:05 Pulse Ox 92 11/15/16 12:05 Intake & Output 11/14/16 11/15/16 11/15/16 23:59 07:59 15:59 Intake Total 360 240 520 Output Total 701 1125 1600 Balance -341 -6285 -2507 Patient's weight 95.935 kg - HEENT Head: Normal (normocephalic,atraumatic, trachea midline) Eye: Normal (EOMI, Sclera white) Oropharynx: Normal (moist) Nose: No Symptoms Reported (without discharge or bleeding) - Respiratory/Cardiovascular Respiratory: Diminished, Other (Crackles at bilateral bases.) - GI Palpation: Normal (soft, non distended and nontender) - Musculoskeletal Extremities: Normal (normal tone, no cyanosis or edema), Edema (Two to 3+ pitting edema in the bilateral lower extremities.) - Integumentary Lymphatics: Normal (No lymph node swelling or pain.) - Neurologic Mood Description: Normal (Fully oriented and appropiate affect) - Other Exam Other Exam Findings: General Appearance: Well developed. Well nourished. In no acute distress. Lungs: Chest was not overinflated. Clear to auscultation. Distant tones Cardiovascular: Jugular Venous Distention: JVD not increased. Heart Rate And Rhythm: Normal. Heart Sounds: Normal. Somewhat distant Murmurs: No murmurs were heard. Carotid Arteries: Carotid pulses were normal. No bruit in the carotid artery. Edema: Not present. Lower extremities pulses normal (including femoral popliteal and dorsalis pedis) . Musculoskeletal System: General/bilateral: No cyanosis of the fingers. Neurological: Oriented to time, place, and person. Nails: No clubbing of the fingernails. - Lab Results Laboratory Results - last 24 hr 11/14/16 11/15/16 11/15/16 04:45 04:25 04:25 WBC 6.0 RBC 3.70 L Hgb 9.2 L Hct 29.2 L MCV 79 L MCH 24.9 L MCHC 31.5 L RDW 21.0 H Plt Count 205 MPV 7.0 L Sodium 139 Potassium 3.1 L Chloride 92 L Carbon Dioxide 40 H Anion Gap 10 BUN 20 Creatinine 1.30 H Estimated GFR (MDRD) 52 L Glucose 133 H Hemoglobin A1c 6.8 H Calculated Osmolality 273 Calcium 7.5 L Tuh-T-Ntnjayibjfm Pept 5350 H - Diagnostic Findings Electrocardiogram showed undetermined rhythm high suspicion for atrial fibrillation, paced rhythm. - Assessment/Plan (1) CHF (congestive heart failure) I50.9 - HEART FAILURE, UNSPECIFIED Acute diastolic acute on chronic I50.33 - Acute on chronic diastolic (congestive ) heart failure Comment: He proved quite significantly with extensive diuresis. Will continue for now. Will watch his CBC/Chem 7 very carefully. (2) Shortness of breath R06.02 - SHORTNESS OF BREATH Acute Comment: Improved significantly after diuresis. That was probably related to congestive heart failure. (3) Atrial fibrillation, controlled I48.91 - UNSPECIFIED ATRIAL FIBRILLATION Chronic Comment: Rate appears to be controlled. He is not anticoagulated I will review his records in my office I suspect the reason for that is history of GI bleed. (4) CAD (coronary artery disease) I25.10 - ATHSCL HEART DISEASE OF [place] CORONARY ARTERY W/O ANG PCTRS Chronic [place] artery [place] heart without angina I25.10 - Atherosclerotic heart disease of [place] coronary artery without angina pectoris Comment: Stable, no new recent events. (5) COPD (chronic obstructive pulmonary disease) J44.9 - CHRONIC OBSTRUCTIVE PULMONARY DISEASE, UNSPECIFIED Chronic emphysema C panlobular J43.1 - Panlobular emphysema Comment: Noted follow up by Internal Medicine team. Plan: Overall gentleman came to hospital with shortness of breath he did have decompensated diastolic congestive heart failure. Appropriate diuresis. He improved significantly. Will supplement potassium. Will watch his kidney function. I will review his records in my office. Especially I would like to know the last interrogation of his device.
[2016-11-15] MEDS: ENOXAPARIN 40 MG/0.4 ML PFS SQ SCH (17:14)
[2016-11-15] MEDS: METOPROLOL (TOPROL-XL) 25 MG TAB PO SCH (20:43)
[2016-11-15] MEDS: ISOSORBIDE MONONITRATE 60 MG TAB PO SCH (20:44)
[2016-11-15] MEDS: Doxazosin Mesylate 4 MG TAB PO SCH (20:44)
[2016-11-16] MEDS: PANTOPRAZOLE 40 MG TAB PO SCH (05:30)
[2016-11-16 06:02] LABS: MPV 6.8 fL (7.4-10.4)
[2016-11-16 06:18] LABS: BLOOD UREA NITROGEN 19 MG/DL (9-20); CALCIUM 8.2 MG/DL (8.4-10.2); CALCULATED OSMOLALITY 266 MOs/Kg (270-290); CHLORIDE 92 mEq/L (98-107); GLUCOSE 96 MG/DL (70-99); SODIUM LEVEL 137 mEq/L (137-146)
[2016-11-16] MEDS: ATORVASTATIN 20 MG TAB PO SCH (07:38)
[2016-11-16] MEDS: METOLAZONE 5 MG TAB PO SCH (07:38)
[2016-11-16] MEDS: FUROSEMIDE 40 MG/4 ML VIAL IV SCH (07:38)
[2016-11-16] MEDS: POTASSIUM CHLORIDE 20 MEQ TAB PO SCH (07:39)
[2016-11-16] MEDS: SPIRONOLACTONE 25 MG TAB PO SCH ×2 (07:39→17:04)
--- NOTE | 2016-11-16 07:51 | GENMEDPROG ---
Chief Complaint: PT ASKING WHERE HE IS EARLIER BUT NOW ORIENTED CONFUSED THIS AM O2 SAT 86-88% ON [address] Elizabeth and indicated that patient has not been on Coumadin or a novel agent as an anticoagulants due to nosebleeds. Notes Reviewed: Yes Events from last night noted and discussed with Clinical Staff Current Medication List: Reviewed Currently: Reports: Cough DVT Prophylaxis: Yes - Physical Examination Vital Signs and I&O: Last Vital Signs Temp 98.0 F 11/16/16 07:40 Pulse 83 11/16/16 07:40 Resp 20 11/16/16 07:40 BP 120/56 L 11/16/16 07:40 Pulse Ox 93 11/16/16 07:40 Oxygen Pulse Oxygen Saturation 93 O2 Device Nasal Cannula Oxygen Flow Rate 4 Fraction of Inspired Oxygen ( FIO2) Intake & Output 11/13/16 11/14/16 11/15/16 11/16/16 23:59 23:59 23:59 23:59 Intake Total 1080 1000 120 Output Total 200 1351 4425 925 Balance -200 -271 -3425 -805 Patient's weight 98.293 kg 98.293 kg 95.935 kg 94.886 kg General: Alert, Oriented x3, No acute distress, Well appearing, Well nourished HEENT: Normal (Normocephalic, atraumatic;EOMI.Sclera white, Nares patent, without discharge or bleeding. No oropharyngeal lesions or erythema. Mucous membranes are dry.) Neck: Non-tender, Normal Trachea alignment, Normal inspection (No cervical lymphadenopathy. No supraclavicular lymphadenopathy.), No Masses palpable, Supple Lymphatics: Normal (No lymph node swelling or pain.) Respiratory: Diminished, Other (Crackles at bilateral bases.) Cardiovascular: Normal S1, No Gallops,Rubs/Murmurs, Normal S2. negative: Regular rate and rhythm GI: Non tender, No hepatospenomegaly, No masses Extremities/Musculoskeletal: Normal pulses (DP pulses 2+ bilaterally) Skin: Warm,Dry and Intact, No rashes, No significant lesion Neurological: Strength at 5/5 X4 ext (Motor 5/5 throughout.), Normal tone, Cranial nerves 3-12 NL ( 2-12 grossly intact.) Psych/Mental Status: Appropriate, Normal Affect Lab/DI/Studies Reviewed: 11/16/16 05:30 11/16/16 05:30 Laboratory Results - last 24 hr 11/16/16 11/16/16 05:30 05:30 WBC 5.1 RBC 3.63 L Hgb 9.1 L Hct 28.6 L MCV 79 L MCH 25.1 L MCHC 31.8 L RDW 20.9 H Plt Count 212 MPV 6.8 L Sodium 137 Potassium 3.9 D Chloride 92 L Carbon Dioxide 40 H Anion Gap 9 BUN 19 Creatinine 1.20 Estimated GFR (MDRD) 57 L Glucose 96 Calculated Osmolality 266 L Calcium 8.2 L [id number]-Y-Ztdcczeexze Pept 3510 H - Assessment (1) CHF (congestive heart failure) Acute I50.9 - HEART FAILURE, UNSPECIFIED Qualifiers: Congestive heart failure type: diastolic Congestive heart failure chronicity: acute on chronic Qualified Code(s): I50.33 - Acute on chronic diastolic (congestive) heart failure Comment/Plan: Patient's history of diastolic heart failure. He has diuresed over 4.5 L since admission. BNP slightly lower today. Breathing appears adequate but confusion is an issue. Will continue the heart failure medications that he is already on, will also add IV Lasix every 8 hours for diuresis then switch to demadex along with increase in supplemental potassium and Zaroxolyn for the next 1 day. Starting aldactone 25 bid. (2) Acute and chronic respiratory failure with hypoxia Acute J96.21 - ACUTE AND CHRONIC RESPIRATORY FAILURE WITH HYPOXIA Comment/ Plan: Patient admitted to monitored medical bed. Continue supplemental O2. Monitor pulmonary status oximetry and chest x-ray. (3) Anemia Acute D64.9 - ANEMIA, UNSPECIFIED Qualifiers: Anemia type: A Iron deficiency anemia type: I Vitamin B12 deficiency anemia type: V Folate deficiency anemia type: F Bone marrow failure anemia type: B Hemolytic anemia type: H Other causes of anemia: chronic disease, kidney Qualified Code(s): N18.9 - Chronic kidney disease, unspecified; D63.1 - Anemia in chronic kidney disease Comment/Plan: Patient with chronic anemia likely stage III renal disease causing this anemia. If anemia deteriorates may consider erythrpoetin injections. 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 transplanted heart: [place] heart Associated angina: without angina Qualified Code(s): I25.10 - Atherosclerotic heart disease of [place] coronary artery without angina pectoris Comment/Plan: Continue current medications and monitor (6) COPD (chronic obstructive pulmonary disease) Chronic J44.9 - CHRONIC OBSTRUCTIVE PULMONARY DISEASE, UNSPECIFIED Qualifiers: COPD type: emphysema Chronic bronchitis type: C Emphysema type: panlobular Qualified Code(s): J43.1 - Panlobular emphysema Comment/Plan: Continue home oxygen, and supportive care. Currently no evidence of COPD exacerbation at this time. (7) Dyslipidemia Chronic E78.5 - HYPERLIPIDEMIA, UNSPECIFIED Comment/Plan: Continue statin (8) GERD (gastroesophageal reflux disease) Chronic K21.9 - GASTRO-ESOPHAGEAL REFLUX DISEASE WITHOUT ESOPHAGITIS Qualifiers: Esophagitis presence: without esophagitis Qualified Code(s): K21.9 - Gastro -esophageal reflux disease without esophagitis Comment/Plan: Continue PPI Case Care Discussed with: Patient, Nursing Staff, Resource Management Education/Counseling Given To: Patient Education/Counseling Given Regarding: Diagnosis, Treatment Total Time: 38 min Critical Care: No Code: 12545 (12+)
--- NOTE | 2016-11-16 08:33 | PCM.CARD ---
- Subjective Reason for visit: Follow up congestive heart failure Feeling much better. Wants to go home. Vital Signs: Last Vital Signs Temp 98.0 F 11/16/16 07:40 Pulse 83 11/16/16 07:40 Resp 20 11/16/16 07:40 BP 120/56 L 11/16/16 07:40 Pulse Ox 93 11/16/16 07:40 PE: General Appearance: Well developed. Well nourished. In no acute distress. Lungs: Chest was not overinflated. Clear to auscultation. Few rhonchi Cardiovascular: Jugular Venous Distention: JVD not increased. Heart Rate And Rhythm: irregular. Heart Sounds: Normal. Murmurs: No murmurs were heard. Carotid Arteries: Carotid pulses were normal. No bruit in the carotid artery. Edema: Not present. Lower extremities pulses normal (including femoral popliteal and dorsalis pedis) . Musculoskeletal System: General/bilateral: No cyanosis of the fingers. Neurological: Oriented to time, place, and person. Nails: No clubbing of the fingernails. Lab/DI Results Reviewed: Laboratory Results - last 24 hr 11/16/16 11/16/16 05:30 05:30 WBC 5.1 RBC 3.63 L Hgb 9.1 L Hct 28.6 L MCV 79 L MCH 25.1 L MCHC 31.8 L RDW 20.9 H Plt Count 212 MPV 6.8 L Sodium 137 Potassium 3.9 D Chloride 92 L Carbon Dioxide 40 H Anion Gap 9 BUN 19 Creatinine 1.20 Estimated GFR (MDRD) 57 L Glucose 96 Calculated Osmolality 266 L Calcium 8.2 L Xrw-R-Pskhhgoqycc Pept 3510 H - Assessment/Plan (1) CHF (congestive heart failure) Acute I50.9 - HEART FAILURE, UNSPECIFIED I50.33 - Acute on chronic diastolic (congestive) heart failure Comment/Plan: He is doing much better. Denies having shortness of breath. He appears to be compensated hemodynamically. I will continue present management. I will cut down his diuretics. It looks like he will be ready to go home soon. (2) Shortness of breath Acute R06.02 - SHORTNESS OF BREATH Comment/Plan: Improve significantly it was related congestive heart failure. (3) Atrial fibrillation, controlled Chronic I48.91 - UNSPECIFIED ATRIAL FIBRILLATION Comment/Plan: Rate control. I review my records from office. He is not anticoagulated because of frequent nose bleeding. Will continue with present management. (4) CAD (coronary artery disease) Chronic I25.10 - ATHSCL HEART DISEASE OF [place] CORONARY ARTERY W/O ANG PCTRS I25.10 - Atherosclerotic heart disease of [place] coronary artery without angina pectoris Comment/Plan: Denies having any chest pain tightness squeezing pressure burning chest. He stable from that point of view. (5) COPD (chronic obstructive pulmonary disease) Chronic J44.9 - CHRONIC OBSTRUCTIVE PULMONARY DISEASE, UNSPECIFIED J43.1 - Panlobular emphysema Comment/Plan: Stable managed by Internal Medicine team. - Plan Overall gentleman is doing much better. Diurese quite significantly. We can cut down his diuretics. There is some discussion between him his as well as our staff regarding his possible assisted/rehab placement at least for short period of time. I did review his interrogation of the device in the office look like is function properly. In spite of the fact that his chads score is at least 3 he is not anticoagulated because of frequent falls as well as frequent nose bleeding.
[2016-11-16 08:36] LABS: ALLEN'S TEST PASS; BEb 17.5 (+/- 2); TCO2 45.4 MMOL/L (23-27)
[2016-11-16 08:38] LABS: ABG Draw Site Right Radial
--- NOTE | 2016-11-16 08:39 | PCM.DCS92 ---
- Final/Secondary Discharge Diagnosis (1) CHF (congestive heart failure) Acute I50.9 - HEART FAILURE, UNSPECIFIED Present on Admission: Yes diastolic acute on chronic I50.33 - Acute on chronic diastolic (congestive ) heart failure Comment: Patient's history of diastolic heart failure. He has diuresed over 4.5 L since admission. BNP slightly lower today. aldactone 25 bid. (2) Acute and chronic respiratory failure with hypoxia Acute J96.21 - ACUTE AND CHRONIC RESPIRATORY FAILURE WITH HYPOXIA Present on Admission: Yes Comment: Patient admitted to monitored medical bed. Continue supplemental O2. Monitor pulmonary status oximetry and chest x-ray. 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 If anemia deteriorates may consider erythrpoetin injections. 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 Present on Admission: Yes Comment: Likely source of GI blood loss status post fulguration and clip placement 07-04-16 (5) CAD (coronary artery disease) Chronic I25.10 - ATHSCL HEART DISEASE OF [place] CORONARY ARTERY W/O ANG PCTRS Present on Admission: Yes [place] artery [place] heart without angina I25.10 - Atherosclerotic heart disease of [place] coronary artery without angina pectoris Comment: Continue current medications and monitor (6) COPD (chronic obstructive pulmonary disease) Chronic J44.9 - CHRONIC OBSTRUCTIVE PULMONARY DISEASE, UNSPECIFIED Present on Admission: Yes 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 Currently no evidence of COPD exacerbation at this time. (7) Dyslipidemia Chronic E78.5 - HYPERLIPIDEMIA, UNSPECIFIED Present on Admission: Yes Comment: Continue statin (8) GERD (gastroesophageal reflux disease) Chronic K21.9 - GASTRO-ESOPHAGEAL REFLUX DISEASE WITHOUT ESOPHAGITIS Present on Admission: Yes without esophagitis K21.9 - Gastro-esophageal reflux disease without esophagitis Comment: Continue PPI [facility] Discharge Condition: Improved Cognitive Discharge Status: Unimpaired Fuctional Discharge Status: Independent Physician Follow up/Referrals: None,No Provider [Primary Care Provider] - One Week Home Medications / New Prescriptions: New POTASSIUM CHLORIDE Tablet [K-DUR 20 mEq Tablet*] 20 meq PO BIDWM #60 tab.er.prt Spironolactone [Aldactone] 25 mg PO LASBID #60 tablet Torsemide [Demadex] 20 mg PO DAILY #30 tablet Continue Doxazosin Mesylate [Cardura] 4 mg PO HS Atorvastatin Calcium [Lipitor] 20 mg PO QAM Metoprolol Succinate [Toprol Xl] 25 mg PO HS Isosorbide Mononitrate [Isosorbide Mononitrate ER] 60 mg PO HS Aspirin (Enteric Coated) [Halfprin] 81 mg PO QAM Pantoprazole Sodium [Protonix] 40 mg PO QAM Ascorbic Acid [Vitamin C] 250 mg PO QAM Discontinued Furosemide 40 mg PO QAM No Action Cefdinir 300 mg PO QAM Azithromycin 500 mg PO QAM Prednisone [Deltasone, Orasone] 10 mg PO QAM Discharge Home Medication List Doxazosin Mesylate [Cardura] 4 mg PO HS 11/28/12 [History Confirmed 11/13/16 Last Taken 11/12/16] Atorvastatin Calcium [Lipitor] 20 mg PO QAM 09/17/14 [History Confirmed Last Taken 11/13/16] Metoprolol Succinate [Toprol Xl] 25 mg PO HS 09/17/14 [History Confirmed Last Taken 11/12/16] Isosorbide Mononitrate [Isosorbide Mononitrate ER] 60 mg PO HS 06/25/15 [ History Confirmed 11/13/16 Last Taken 11/12/16] Aspirin (Enteric Coated) [Halfprin] 81 mg PO QAM 07/30/16 [History Confirmed Last Taken 11/13/16] Pantoprazole Sodium [Protonix] 40 mg PO QAM 07/30/16 [History Confirmed Last Taken 11/13/16] Ascorbic Acid [Vitamin C] 250 mg PO QAM 09/13/16 [History Confirmed 11/13/16 Last Taken 11/13/16] Azithromycin 500 mg PO QAM 11/13/16 [History Confirmed 11/13/16 Last Taken 11/13] Cefdinir 300 mg PO QAM 11/13/16 [History Confirmed 11/13/16 Last Taken 11/13/16] Prednisone [Deltasone, Orasone] 10 mg PO QAM 11/13/16 [History Confirmed Last Taken 11/13/16] POTASSIUM CHLORIDE Tablet [K-DUR 20 mEq Tablet*] 20 meq PO BIDWM #60 tab.er.prt 11/16/16 [Rx Last Taken Unknown] Spironolactone [Aldactone] 25 mg PO LASBID #60 tablet 11/16/16 [Rx Last Taken Unknown] Torsemide [Demadex] 20 mg PO DAILY #30 tablet 11/16/16 [Rx Last Taken Unknown] O2 Device: Nasal Cannula Oxygen to be used after Discharge: Continuous Diet at Discharge: As Tolerated, Heart Healthy, Low Salt Activity: As Tolerated Discontinue use of:: Alcohol, All Types of Tobacco - DC Summary Notes HPI/Notes: Dr. Elizabeth's consult is as follows: Patient is an 86 is old gentleman with diastolic congestive heart failure. He was admitted to the hospital with chief complaint of progressive shortness of breath. He was given appropriate medication improved quite significantly in the matter of fact today he was able to walk on the hallway twice without much difficulties. Before admission he did have paroxysmal nocturnal dyspnea but no significant swelling of lower extremities. Did have some cough but no sputum production. Denies have any syncope or dizziness. His past medical history include pacemaker, paroxysmal atrial fibrillation. I do see him in the office however I can't remember last time when I have seen him and I will review his notes finishing this consultation. Hospital Course Note:: Discharge summary on patient named SHELLIE UMANZOR admitted to [facility] on 11/13/16 by Kevyn Hernandez MD. Date of discharge is []. He was admitted with CHF and atrial fib. Previous echo on July of 2016 showed diastolic dysfunction with ejection fraction 60%. He diuresed 4.5 L with administration of Lasix Zaroxolyn and Aldactone. The Zaroxolyn was discontinued and he will be continued on the Aldactone p.o. Demodex instead of Lasix. He was not felt to be anticoagulants candidate due to his history of frequent nose bleeds. He improved throughout hospitalization and was seen by Physical therapy needing continuation of their assistance. indicated that she would be unable to handle him at home until he was stronger and arrangements being made for him to go to alf for continued physical therapy for the next 1-2 weeks. CC: [facility] Dr. Elizabeth Total Time: 41 minutes Code: 15689 (>30min.) - Physical Exam Vital Signs: Last Vital Signs Temp 98.0 F 11/16/16 07:40 Pulse 83 11/16/16 07:40 Resp 20 11/16/16 07:40 BP 120/56 L 11/16/16 07:40 Pulse Ox 93 11/16/16 07:40 Oxygen Pulse Oxygen Saturation 93 O2 Device Nasal Cannula Oxygen Flow Rate 4 Fraction of Inspired Oxygen ( FIO2) Constitutional: Alert (Awake, Fully oriented, well appearing. No apparent distress) Oriented to: Time, Person, Place - HEENT Head: Normal (normocephalic,atraumatic, trachea midline) Eye: Normal (EOMI, Sclera white) Oropharynx: Normal (moist) ENT EAC: Normal (No oropharyngeal lesions or erythema. Mucous membranes are dry. ) TMJ: Normal Nose: No Symptoms Reported (without discharge or bleeding) - Respiratory/Cardiovascular Respiratory: Diminished, Other (Crackles at bilateral bases.) Cardiovascular: Irregular, Systolic murmur. negative: Bradycardia, Tachycardia - GI Auscultation: Normal (normal active sounds) Palpation: Normal (soft, non distended and nontender) Tenderness: Non tender (No rebound or guarding) Jackson's Sign: Negative - Musculoskeletal Back: Normal (Non-Tender) Extremities: Normal (normal tone, no cyanosis or edema), Edema (Two to 3+ pitting edema in the bilateral lower extremities.) - Integumentary Skin: Normal (Warm dry no rashes) Lymphatics: Normal (No lymph node swelling or pain.) - Neurologic Memory Impaired: Normal (Initially he was confused but is more awake and alert orient x3 now) Motor Function: Normal (Motor 5/5 throughout.Normal tone, Pulses 2+ No cyanosis or edema, FROM) Cranial Nerve: Normal (CN II-XII intact sensation, strength 5/5) Cerebellar: Normal (Babinski: toes downgoing bilaterally. Intact Finger to nose. Sensory grossly intact to light touch. Intact rapid alternating movements bilaterally. No pronator drift.) Mood Description: Normal (Fully oriented and appropiate affect) Thought: Coherent Perception: Normal (Normal and appropriate affect.)
--- NOTE | 2016-11-16 08:41 | DIRPT ---
CLINICAL DATA: Congestive heart failure, pneumonia, shortness of Breath EXAM: PORTABLE CHEST 1 VIEW COMPARISON: 11/13/2016 FINDINGS: Cardiomegaly again noted. Dual lead cardiac pacemaker is unchanged in position. Persistent mild interstitial prominence bilaterally probable pulmonary edema. Again noted bilateral small pleural effusion with bilateral basilar atelectasis or infiltrate left greater than right. IMPRESSION: Persistent mild interstitial prominence bilaterally probable pulmonary edema. Again noted bilateral small pleural effusion with bilateral basilar atelectasis or infiltrate left greater than right. Electronically Signed By: Gary Gutierres M.D. On: 11/16/2016 08:38
[2016-11-16 10:02] LABS: BLOOD UREA NITROGEN 20 MG/DL (9-20); CALCIUM 8.5 MG/DL (8.4-10.2); CALCULATED OSMOLALITY 269 MOs/Kg (270-290); CHLORIDE 92 mEq/L (98-107); GLUCOSE 134 MG/DL (70-99); SODIUM LEVEL 137 mEq/L (137-146)
[2016-11-16] MEDS: TORSEMIDE 20 MG TAB PO SCH ×2 (11:38→17:03)
--- NOTE | 2016-11-16 11:54 | CAPUEKG ---
[place], [place] Test Date: 2016-11-16 Pat Name: SHELLIE UMANZOR Department: Room: 436 Gender: Male S[employer]age [employer]er: : Requested By: Order Number: Reading MD: Willie Elizabeth MD Measurements Intervals [place] Rate: 75 P: LA: QRS: -70 QRSD: 178 T: 55 QT: 450 QTc: 502 Interpretive Statements Wide QRS rhythm paced rhythm. Abnormal ECG Electronically Signed On 11-16-16 11:54:15 EST by Willie Elizabeth MD [id number] [id number]
[2016-11-16] MEDS ORDERED: POTASSIUM CHLORIDE 10 MEQ TABLET PO SCH (12:00)
[2016-11-16] MEDS: POTASSIUM CHLORIDE 10 MEQ TABLET PO SCH (17:03)
[2016-11-16] MEDS: ENOXAPARIN 40 MG/0.4 ML PFS SQ SCH (17:04)
[2016-11-16] MEDS: Doxazosin Mesylate 4 MG TAB PO SCH (21:30)
[2016-11-16] MEDS: METOPROLOL (TOPROL-XL) 25 MG TAB PO SCH (21:33)
[2016-11-16] MEDS: ISOSORBIDE MONONITRATE 60 MG TAB PO SCH (21:34)
[2016-11-17 04:23] VITALS: BMI 27.6
[2016-11-17 06:00] LABS: BLOOD UREA NITROGEN 21 MG/DL (9-20); CALCIUM 8.5 MG/DL (8.4-10.2); CALCULATED OSMOLALITY 259 MOs/Kg (270-290); CHLORIDE 88 mEq/L (98-107); GLUCOSE 103 MG/DL (70-99); SODIUM LEVEL 133 mEq/L (137-146)
[2016-11-17 06:03] LABS: MPV 7.1 fL (7.4-10.4)
[2016-11-17] MEDS: PANTOPRAZOLE 40 MG TAB PO SCH (06:11)
[2016-11-17 07:31] VITALS: BP 102/50; PULSE 79; TEMP 98.2
[2016-11-17] MEDS: TORSEMIDE 20 MG TAB PO SCH (07:52)
[2016-11-17] MEDS: POTASSIUM CHLORIDE 10 MEQ TABLET PO SCH (07:52)
[2016-11-17] MEDS: SPIRONOLACTONE 25 MG TAB PO SCH (07:52)
[2016-11-17] MEDS: ATORVASTATIN 20 MG TAB PO SCH (07:53)
--- NOTE | 2016-11-17 10:28 | PCM.DCS92 ---
- Final/Secondary Discharge Diagnosis (1) CHF (congestive heart failure) Acute I50.9 - HEART FAILURE, UNSPECIFIED Present on Admission: Yes diastolic acute on chronic I50.33 - Acute on chronic diastolic (congestive ) heart failure Comment: Patient's history of diastolic heart failure. He has diuresed over 4.5 L since admission. BNP slightly lower today. aldactone 25 bid. (2) Acute and chronic respiratory failure with hypoxia Acute J96.21 - ACUTE AND CHRONIC RESPIRATORY FAILURE WITH HYPOXIA Present on Admission: Yes Comment: Patient admitted to monitored medical bed. Continue supplemental O2. Monitor pulmonary status oximetry and chest x-ray. 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 If anemia deteriorates may consider erythrpoetin injections. 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 Present on Admission: Yes Comment: Likely source of GI blood loss status post fulguration and clip placement 07-04-16 (5) CAD (coronary artery disease) Chronic I25.10 - ATHSCL HEART DISEASE OF [place] CORONARY ARTERY W/O ANG PCTRS Present on Admission: Yes [place] artery [place] heart without angina I25.10 - Atherosclerotic heart disease of [place] coronary artery without angina pectoris Comment: Continue current medications and monitor (6) COPD (chronic obstructive pulmonary disease) Chronic J44.9 - CHRONIC OBSTRUCTIVE PULMONARY DISEASE, UNSPECIFIED Present on Admission: Yes 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 Currently no evidence of COPD exacerbation at this time. (7) Dyslipidemia Chronic E78.5 - HYPERLIPIDEMIA, UNSPECIFIED Present on Admission: Yes Comment: Continue statin (8) GERD (gastroesophageal reflux disease) Chronic K21.9 - GASTRO-ESOPHAGEAL REFLUX DISEASE WITHOUT ESOPHAGITIS Present on Admission: Yes without esophagitis K21.9 - Gastro-esophageal reflux disease without esophagitis Comment: Continue PPI Discharge Disposition: Group Home Facility Discharge Condition: Improved Cognitive Discharge Status: Cognitive deficits prevent decision making for safety. Fuctional Discharge Status: Walker Assistance Physician Follow up/Referrals: Joseph De Los Santos MD [Staff Physician] - 11/23/16 10:40 am Home Medications / New Prescriptions: New POTASSIUM CHLORIDE Tablet [K-DUR 20 mEq Tablet*] 20 meq PO BIDWM #60 tab.er.prt Spironolactone [Aldactone] 25 mg PO LASBID #60 tablet Torsemide [Demadex] 20 mg PO DAILY #30 tablet Continue Doxazosin Mesylate [Cardura] 4 mg PO HS Atorvastatin Calcium [Lipitor] 20 mg PO QAM Metoprolol Succinate [Toprol Xl] 25 mg PO HS Isosorbide Mononitrate [Isosorbide Mononitrate ER] 60 mg PO HS Aspirin (Enteric Coated) [Halfprin] 81 mg PO QAM Pantoprazole Sodium [Protonix] 40 mg PO QAM Ascorbic Acid [Vitamin C] 250 mg PO QAM Prednisone [Deltasone, Orasone] 10 mg PO QAM Discontinued Furosemide 40 mg PO QAM Cefdinir 300 mg PO QAM Azithromycin 500 mg PO QAM Discharge Home Medication List Doxazosin Mesylate [Cardura] 4 mg PO HS 11/28/12 [History Confirmed 11/13/16] Atorvastatin Calcium [Lipitor] 20 mg PO QAM 09/17/14 [History Confirmed 11/13/16 ] Metoprolol Succinate [Toprol Xl] 25 mg PO HS 09/17/14 [History Confirmed ] Isosorbide Mononitrate [Isosorbide Mononitrate ER] 60 mg PO HS 06/25/15 [ History Confirmed 11/13/16] Aspirin (Enteric Coated) [Halfprin] 81 mg PO QAM 07/30/16 [History Confirmed ] Pantoprazole Sodium [Protonix] 40 mg PO QAM 07/30/16 [History Confirmed 11/13/16 ] Ascorbic Acid [Vitamin C] 250 mg PO QAM 09/13/16 [History Confirmed 11/13/16] Prednisone [Deltasone, Orasone] 10 mg PO QAM 11/13/16 [History Confirmed ] POTASSIUM CHLORIDE Tablet [K-DUR 20 mEq Tablet*] 20 meq PO BIDWM #60 tab.er.prt 11/16/16 [Rx] Spironolactone [Aldactone] 25 mg PO LASBID #60 tablet 11/16/16 [Rx] Torsemide [Demadex] 20 mg PO DAILY #30 tablet 11/16/16 [Rx] New Discharge Medications (Rx) POTASSIUM CHLORIDE Tablet [K-DUR 20 mEq Tablet*] 20 meq PO BIDWM #60 tab.er.prt 11/16/16 [Rx] Spironolactone [Aldactone] 25 mg PO LASBID #60 tablet 11/16/16 [Rx] Torsemide [Demadex] 20 mg PO DAILY #30 tablet 11/16/16 [Rx] O2 Device: Nasal Cannula Oxygen Flow Rate: 3 ([place]an as [place] at [facility]) Oxygen to be used after Discharge: Continuous Diet at Discharge: Cardiac, Fluid Restricted (1200 ml/24 hours) Activity: As Tolerated Call Office For: Worsening Symptoms, Fever over 100.5, Pain Uncontrolled By Meds - DC Summary Notes Hospital Course Note:: Discharge summary on patient named SHELLIE MAGDALENO admitted to [facility] on 11/13/16 by Kevyn Hernnadez MD. Date of discharge is []. Very pleasant 86-year-old gentleman admitted with diastolic congestive heart failure. He has a history of atrial fibrillation. He was placed in the hospital underwent diuresis as well as congestive heart failure education. His atrial fibrillation was evaluated and he was felt not to be a candidate for Coumadin therapy due to gastric arterial venous malformations. He has diuresed quite well throughout the hospitalization. This morning on the day of discharge I spoke to Mrs. Magdaleno regarding discharge plans she has expressed her pleasure with his hospitalization that she has been pleased with the care he has received. At this point patient has reached maximum benefit of hospitalization. He is stable [facility]. Total Time: 45 min Code: 16379 (>30min.) Heart Failure DC - Education Provide the following patient education: Yes Cardiac Prudent Diet (Restricted Salt Intake), Yes Tobacco Cessation(If any use in the past 30 days), Yes Heart Failure(Continuity Care) - Discharge Medications Beta Janet Ordered: New Prescription on Chart Ejection Fraction (% or Description): 60-65% YOSVANY/ARB Ordered (Patients with EF<40% use YOSVANY INHIBITORS &/or ARBs): Contraindicated (See Below) ACEI/ARB Contraindications: Impaired Renal Function Anticoagulant Ordered for Afib: Contraindicated (See Below) Anticoagulant Contraindicated: Other (gastric AVMs) - Physical Exam Vital Signs: Last Vital Signs Temp 98.2 F 11/17/16 07:30 Pulse 79 11/17/16 07:30 Resp 18 11/17/16 07:30 BP 102/50 L 11/17/16 07:30 Pulse Ox 92 11/17/16 08:00 Oxygen Pulse Oxygen Saturation 92 O2 Device Nasal Cannula Oxygen Flow Rate 3 Fraction of Inspired Oxygen ( FIO2) Selected Entries 11/13/16 11/13/16 11/17/16 16:41 21:58 04:21 Patient's 101.151 kg 98.293 kg 94.858 kg weight Constitutional: Alert (Awake, Fully oriented, well appearing. No apparent distress) Oriented to: Time, Person, Place - HEENT Head: Normal (normocephalic,atraumatic, trachea midline) Eye: Normal (EOMI, Sclera white) Oropharynx: Normal (moist) Nose: No Symptoms Reported (without discharge or bleeding) - Respiratory/Cardiovascular Respiratory: Diminished, Other (Crackles at bilateral bases.) - GI Palpation: Normal (soft, non distended and nontender) - Musculoskeletal Extremities: Normal (normal tone, no cyanosis or edema), Edema (Two to 3+ pitting edema in the bilateral lower extremities.) - Integumentary Lymphatics: Normal (No lymph node swelling or pain.) - Neurologic Mood Description: Normal (Fully oriented and appropiate affect) - Other Exam Other Exam Findings: Laboratory Results - last 24 hr 11/14/16 11/17/16 11/17/16 21:12 04:50 04:50 WBC 6.0 RBC 3.83 L Hgb 9.6 L Hct 29.9 L MCV 78 L MCH 25.2 L MCHC 32.2 L RDW 20.4 H Plt Count 216 MPV 7.1 L Sodium 133 L Potassium 4.2 Chloride 88 L Carbon Dioxide 38 H Anion Gap 11 BUN 21 H Creatinine 1.40 H Estimated GFR (MDRD) 48 L Glucose 103 H Calculated Osmolality 259 L Calcium 8.5 Ur Random Microalbumin < 3.0
== END 2016-11-17 13:15 | DRG 291 ==
LOC: ED 16:31 → ICU 19:43 → PCU 11-14 16:34
PROVIDERS: ADMIT Internal Medicine; ATTEND Hospitalist
PROC: 039B3ZZ Drainage of Right Radial Artery, Percutaneous Approach (ICD-10-PCS; principal; 2016-11-13)
DX: I50.33 Acute on chronic diastolic (congestive) heart failure (principal); J96.21 Acute and chronic respiratory failure with hypoxia; I48.0 Paroxysmal atrial fibrillation; I12.9 Hypertensive chronic kidney disease with stage 1 through stage 4 chronic kidney disease, or unspecified chronic kidney disease; D63.1 Anemia in chronic kidney disease; Q27.33 Arteriovenous malformation of digestive system vessel; I25.10 Atherosclerotic heart disease of native coronary artery without angina pectoris; J44.9 Chronic obstructive pulmonary disease, unspecified; E78.5 Hyperlipidemia, unspecified; K21.9 Gastro-esophageal reflux disease without esophagitis; I25.2 Old myocardial infarction; E78.00 Pure hypercholesterolemia, unspecified; Z95.0 Presence of cardiac pacemaker; I51.9 Heart disease, unspecified; F32.9 Major depressive disorder, single episode, unspecified; Z88.8 Allergy status to other drugs, medicaments and biological substances; Z79.82 Long term (current) use of aspirin; Z79.899 Other long term (current) drug therapy; Z87.891 Personal history of nicotine dependence; E87.6 Hypokalemia; N18.3 Chronic kidney disease, stage 3 (moderate)
CPT/HCPCS: 36415; 36600; 71010; 71275; 80048; 80053; 80061; 81001; 82043; 82803; 83036; 83605; 83735; 83880; 84484; 85025; 85027; 85379; 85610; 85730; 87641; 93005; 94640; 96372; 96374; 96375; 97162; 99284; A9698; J1650; J1940; J2405; J2930; J3490; J7620